=== PATIENT | female | born 1950 | race Two or more races ===

== ENCOUNTER 2017-12-14 12:50 | Emergency (ER) | payer MEDICARE, OTHER ==
[~2017-12-14] VITALS: Ht 172.7 cm; Wt 86.0 kg
[2017-12-14 13:31] LABS: BASOPHILS % 1.3 % (0.0-2.0); EOSINOPHILS % 1.3 % (0.0-5.0); HEMATOCRIT. 35.9 % (36.0-48.0); HEMOGLOBIN. 11.9 g/dL (12.0-16.0); LYMPHOCYTES % 31.7 % (20.0-50.0); MEAN CORPUSCULAR HEMOGLOBIN 30.8 pg (28.0-32.0); MEAN CORPUSCULAR VOLUME 92.7 fL (81.0-99.0); MEAN PLATELET VOLUME 8.8 fl (7.4-10.4); MONOCYTES % 7.9 % (2.0-8.0); NEUTROPHILS % 57.8 % (40.0-76.0); PLATELET 253 x1000/uL (130-400); RED BLOOD CELL COUNT 3.87 mill/uL (4.2-5.4); RED CELL DISTRIBUTION WIDTH 12.3 % (11.6-14.6)
[2017-12-14 13:40] LABS: CHLORIDE 106 mEq/L (98-107)
[2017-12-14 19:37] VITALS: BP 163/82
== END 2017-12-14 19:53 | disposition home or self-care (01) ==
LOC: ER 12:50
DX: R60.0 Localized edema (principal); I11.0 Hypertensive heart disease with heart failure; I50.9 Heart failure, unspecified; E11.9 Type 2 diabetes mellitus without complications; Z79.899 Other long term (current) drug therapy
CPT/HCPCS: 36415; 71045; 80053; 83880; 84484; 85025; 93005; 99285

== ENCOUNTER 2018-09-03 15:24 | Inpatient (IN) | payer MEDICARE, OTHER ==
[~2018-09-03] VITALS: Ht 167.6 cm; Wt 93.9 kg
[2018-09-03] MEDS ORDERED: ONDANSETRON HCL 4MG/2ML INJ IV STA (16:46)
[2018-09-03] MEDS ORDERED: SODIUM CHLORIDE 0.9% 1,000 ML IV ONE (16:46)
[2018-09-03] MEDS ORDERED: MORPHINE SULFATE 4 MG/ML CPJ (NOT FOR IM USE) IV STA (16:46)
[2018-09-03 18:38] LABS: BASOPHILS % 0.5 % (0.0-2.0); CHLORIDE 105 mEq/L (98-107); EOSINOPHILS % 2.7 % (0.0-5.0); HEMATOCRIT. 37.5 % (36.0-48.0); HEMOGLOBIN. 12.6 g/dL (12.0-16.0); LYMPHOCYTES % 22.2 % (20.0-50.0); MEAN CORPUSCULAR HEMOGLOBIN 31.7 pg (28.0-32.0); MEAN CORPUSCULAR VOLUME 94.6 fL (81.0-99.0); MEAN PLATELET VOLUME 8.7 fl (7.4-10.4); MONOCYTES % 3.5 % (2.0-8.0); NEUTROPHILS % 71.1 % (40.0-76.0); PLATELET 246 x1000/uL (130-400); RED BLOOD CELL COUNT 3.97 mill/uL (4.2-5.4); RED CELL DISTRIBUTION WIDTH 13.3 % (11.6-14.6)
[2018-09-03] MEDS ORDERED: ASPIRIN 325MG EC TABLET PO ONE (19:15)
[2018-09-03] MEDS ORDERED: ONDANSETRON HCL 4MG/2ML INJ IV ONE (19:45)
[2018-09-03 23:20] VITALS: BP 192/106
[2018-09-03 23:21] LABS: CLARITY URINE CLOUDY (CLEAR); COLOR URINE YELLOW (YELLOW); KETONES URINE NEGATIVE (NEGATIVE); LEUKOCYTE ESTERASE URINE NEGATIVE (NEGATIVE); NITRITE URINE NEGATIVE (NEGATIVE); OCCULT BLOOD URINE TRACE (NEGATIVE); PROTEIN URINE TRACE (NEGATIVE); SPECIFIC GRAVITY URINE 1.018 (1.005-1.030); UROBILINOGEN URINE 0.2 E.U./dL (0.2-1.0)
[2018-09-03 23:30] VITALS: BP 192/106
[2018-09-04] VITALS: BP 198/89
[2018-09-04] MEDS ORDERED: MORPHINE SULFATE 4 MG/ML CPJ (NOT FOR IM USE) IV PRN
[2018-09-04] MEDS ORDERED: HYDRALAZINE 20MG/ML VIAL IV PRN
[2018-09-04] MEDS: DEXT 5%/0.45% NACL 1000ML 1,000 ML IV SCH ×2 (00:55→13:22)
[2018-09-04] MEDS: METOCLOPRAMIDE HCL 10MG/2ML VIAL IV SCH ×5 (00:55→23:37)
[2018-09-04] MEDS ORDERED: METF-416 PO (02:15)
[2018-09-04] MEDS ORDERED: AMLO10TA4 PO (02:15)
[2018-09-04 04:00] VITALS: BP 101/59
[2018-09-04] MEDS ORDERED: BLOOD SUGAR DIAGNOSTIC STRIP TEST SCH (06:00)
[2018-09-04] MEDS: INSULIN LISPRO 100 UNITS/ML SUBCUT SCH ×4 (06:29→20:44)
[2018-09-04] MEDS: BLOOD SUGAR DIAGNOSTIC STRIP TEST SCH ×4 (06:29→20:36)
[2018-09-04 06:48] LABS: CHLORIDE 105 mEq/L (98-107)
[2018-09-04 06:53] LABS: BASOPHILS % 0.4 % (0.0-2.0); EOSINOPHILS % 1.8 % (0.0-5.0); HEMATOCRIT. 32.8 % (36.0-48.0); HEMOGLOBIN. 11.2 g/dL (12.0-16.0); LYMPHOCYTES % 27.8 % (20.0-50.0); MEAN CORPUSCULAR HEMOGLOBIN 32.5 pg (28.0-32.0); MEAN CORPUSCULAR VOLUME 94.8 fL (81.0-99.0); MEAN PLATELET VOLUME 8.6 fl (7.4-10.4); MONOCYTES % 4.8 % (2.0-8.0); NEUTROPHILS % 65.2 % (40.0-76.0); PLATELET 227 x1000/uL (130-400); RED BLOOD CELL COUNT 3.46 mill/uL (4.2-5.4); RED CELL DISTRIBUTION WIDTH 13.3 % (11.6-14.6)
[2018-09-04 08:00] VITALS: BP 110/47
[2018-09-04] MEDS ORDERED: LOPE2CAP MT (08:44)
[2018-09-04] MEDS: PANTOPRAZOLE SODIUM 40 MG/VIAL IV SCH (09:08)
[2018-09-04 12:00] VITALS: BP_SYST 124; BP_SYST 126; BP_SYST 128; BP_DIAS 72; BP_DIAS 74; BP_DIAS 75; BP_DIAS 76
[2018-09-04] MEDS ORDERED: INSU100I28 SQ (12:13)
[2018-09-04] MEDS ORDERED: DEXTROSE 50% WATER 50ML SYRINGE IV PRN ×2 (13:00)
[2018-09-04] MEDS ORDERED: LORAZEPAM 0.5MG TABLET PO PRN (13:00)
[2018-09-04] MEDS ORDERED: ACETAMINOPHEN 325MG TABLET PO PRN (13:00)
[2018-09-04] MEDS ORDERED: DIPHENHYDRAMINE 50MG/ML VIAL IV PRN (13:00)
[2018-09-04] MEDS ORDERED: ONDANSETRON HCL 4MG/2ML INJ IV PRN ×2 (13:00)
[2018-09-04] MEDS ORDERED: CLONIDINE 0.1MG TABLET PO PRN (13:00)
[2018-09-04] MEDS: AMLODIPINE 10MG TABLET PO SCH (13:22)
[2018-09-04 16:00] VITALS: BP 126/76
[2018-09-04 20:00] VITALS: BP 118/55
[2018-09-05] VITALS: BP 124/70
[2018-09-05] MEDS: DEXT 5%/0.45% NACL 1000ML 1,000 ML IV SCH (03:03)
[2018-09-05 04:00] VITALS: BP 150/61
[2018-09-05] MEDS: BLOOD SUGAR DIAGNOSTIC STRIP TEST SCH ×2 (05:37→12:10)
[2018-09-05] MEDS: INSULIN LISPRO 100 UNITS/ML SUBCUT SCH ×2 (05:56→12:40)
[2018-09-05] MEDS: METOCLOPRAMIDE HCL 10MG/2ML VIAL IV SCH ×2 (06:03→14:37)
[2018-09-05] MEDS: PANTOPRAZOLE SODIUM 40 MG/VIAL IV SCH (08:50)
[2018-09-05] MEDS: AMLODIPINE 10MG TABLET PO SCH (08:54)
[2018-09-05 09:25] VITALS: BP 134/65
[2018-09-05 12:00] VITALS: BP 129/85
[2018-09-05 14:45] VITALS: BP 162/85
== END 2018-09-05 15:30 | disposition home or self-care (01) | DRG 74 ==
LOC: ER 15:24 → 8WST 20:39 → ENRESERV 21:31
PROVIDERS: ADMIT Internal Medicine; ATTEND Internal Medicine
DX: E11.43 Type 2 diabetes mellitus with diabetic autonomic (poly)neuropathy (principal); I10 Essential (primary) hypertension; K31.84 Gastroparesis; Z90.49 Acquired absence of other specified parts of digestive tract; Z83.3 Family history of diabetes mellitus
CPT/HCPCS: 36415; 71045; 74176; 80048; 80076; 82962; 84484; 93005; 96374; 99285; C9113; J0360; J1815; J2270; J2405; J2765; J7030

== ENCOUNTER 2019-09-12 00:46 | Inpatient (IN) | payer BC, MEDICARE ==
[~2019-09-12] VITALS: Ht 167.6 cm; Wt 95.3 kg
[~2019-09-12 00:46] MED LIST: AMLO10TA4 PO; INSU100I28 SQ; LOPE2CAP MT; METF-416 PO
[2019-09-12] MEDS ORDERED: ONDANSETRON HCL 4MG/2ML INJ IV STA (01:28)
[2019-09-12] MEDS ORDERED: SODIUM CHLORIDE 0.9% 1,000 ML IV ONE (01:28)
[2019-09-12 01:41] LABS: CHLORIDE 95 mEq/L (98-107)
[2019-09-12 01:43] LABS: HEMATOCRIT. 38.1 % (36.0-48.0); HEMOGLOBIN. 12.8 g/dL (12.0-16.0); MEAN CORPUSCULAR HEMOGLOBIN 31.7 pg (28.0-32.0); MEAN CORPUSCULAR VOLUME 94.4 fL (81.0-99.0); MEAN PLATELET VOLUME 9.9 fl (7.4-10.4); PLATELET 196 x1000/uL (130-400); RED BLOOD CELL COUNT 4.03 mill/uL (4.2-5.4); RED CELL DISTRIBUTION WIDTH 13.3 % (11.6-14.6)
[2019-09-12 02:14] LABS: PLATELET ESTIMATE NORMAL
[2019-09-12 05:38] LABS: CLARITY URINE TURBID (CLEAR); COLOR URINE YELLOW (YELLOW); KETONES URINE NEGATIVE (NEGATIVE); LEUKOCYTE ESTERASE URINE 2+ (NEGATIVE); NITRITE URINE POSITIVE (NEGATIVE); OCCULT BLOOD URINE 2+ (NEGATIVE); PROTEIN URINE 2+ (NEGATIVE); SPECIFIC GRAVITY URINE 1.019 (1.005-1.030)
[2019-09-12] MEDS ORDERED: INSULIN LISPRO 100 UNITS/ML SUBCUT SCH ×2 (05:45→08:20)
[2019-09-12] MEDS ORDERED: ONDANSETRON HCL 4MG/2ML INJ IV PRN (08:00)
[2019-09-12] MEDS ORDERED: DEXTROSE 50% WATER 50ML SYRINGE IV PRN (08:00)
[2019-09-12] MEDS ORDERED: ACETAMINOPHEN 325MG TABLET PO PRN (08:00)
[2019-09-12] MEDS ORDERED: SODIUM CHLORIDE 0.9% 1,000 ML IV SCH (08:00)
[2019-09-12] MEDS ORDERED: CLONIDINE 0.1MG TABLET PO SCH (08:30)
[2019-09-12 08:50] VITALS: BP 155/71
[2019-09-12] MEDS ORDERED: AMLODIPINE 10MG TABLET PO SCH (09:00)
[2019-09-12] MEDS ORDERED: BLOOD SUGAR DIAGNOSTIC STRIP TEST SCH (09:00)
[2019-09-12] MEDS ORDERED: INSULIN GLARGINE UD 100 UNITS/ML SYR SUBCUT SCH ×2 (10:00)
[2019-09-12] MEDS: SODIUM CHLORIDE 0.9% 1,000 ML IV SCH (10:26)
[2019-09-12] MEDS: ACETAMINOPHEN 325MG TABLET PO PRN ×2 (11:05→17:08)
[2019-09-12 12:00] VITALS: BP 144/60
[2019-09-12] MEDS: BLOOD SUGAR DIAGNOSTIC STRIP TEST SCH ×3 (12:28→21:00)
[2019-09-12] MEDS: INSULIN LISPRO 100 UNITS/ML SUBCUT SCH ×3 (12:43→21:07)
[2019-09-12] MEDS ORDERED: ENOXAPARIN 40MG/0.4ML SYR SUBCUT SCH (18:00)
[2019-09-12] MEDS ORDERED: CEFTRIAXONE 1,000 MG in DEXTROSE 5% WATER 50 ML IV SCH (18:30)
[2019-09-12 20:00] VITALS: BP 122/55
[2019-09-13] VITALS: BP 148/69
[2019-09-13] MEDS: ACETAMINOPHEN 325MG TABLET PO PRN ×3 (02:20→17:02)
[2019-09-13] MEDS: SODIUM CHLORIDE 0.9% 1,000 ML IV SCH ×2 (02:28→21:16)
[2019-09-13] MEDS: INSULIN GLARGINE UD 100 UNITS/ML SYR SUBCUT SCH ×2 (02:30→10:20)
[2019-09-13 04:00] VITALS: BP 120/62
[2019-09-13] MEDS: BLOOD SUGAR DIAGNOSTIC STRIP TEST SCH ×4 (06:30→20:22)
[2019-09-13 06:46] LABS: HEMOGLOBIN. 11.2 g/dL (12.0-16.0); MEAN CORPUSCULAR HEMOGLOBIN 30.9 pg (28.0-32.0); PLATELET 145 x1000/uL (130-400); RED BLOOD CELL COUNT 3.61 mill/uL (4.2-5.4); RED CELL DISTRIBUTION WIDTH 13.3 % (11.6-14.6)
[2019-09-13] MEDS ORDERED: PIPERACILLIN/TAZOBACTAM 3.375 G in DEXT 5% WATER 100 ML IV SCH (07:15)
[2019-09-13 08:00] VITALS: BP 163/99
[2019-09-13] MEDS: AMLODIPINE 10MG TABLET PO SCH (08:39)
[2019-09-13] MEDS: INSULIN LISPRO 100 UNITS/ML SUBCUT SCH ×4 (08:39→21:15)
[2019-09-13] MEDS ORDERED: VANCOMYCIN 2,000 MG in DEXT 5% WATER 500 ML IV SCH (09:00)
[2019-09-13] MEDS ORDERED: POTASSIUM CHLORIDE 20MEQ TABLET SR PO SCH (09:00)
[2019-09-13 12:00] VITALS: BP 113/58
[2019-09-13] MEDS: PIPERACILLIN/TAZOBACTAM 2.25 G in DEXTROSE 5% WATER 50 ML IV SCH ×2 (12:44→21:13)
[2019-09-13 16:00] VITALS: BP 171/71
[2019-09-13] MEDS ORDERED: CLONIDINE 0.1MG TABLET PO PRN (17:00)
[2019-09-13] MEDS: ENOXAPARIN 30MG/0.3ML SYR SUBCUT SCH (17:03)
[2019-09-13 20:00] VITALS: BP 144/82
[2019-09-13 20:05] LABS: PLATELET ESTIMATE NORMAL
[2019-09-13] MEDS: HYDRALAZINE HCL 50MG TABLET PO SCH (21:00)
[2019-09-14] VITALS: BP 123/59
[2019-09-14] MEDS: INSULIN GLARGINE UD 100 UNITS/ML SYR SUBCUT SCH ×3 (00:24→21:35)
[2019-09-14] MEDS: PIPERACILLIN/TAZOBACTAM 2.25 G in DEXTROSE 5% WATER 50 ML IV SCH ×2 (00:26→05:42)
[2019-09-14 04:00] VITALS: BP 149/62
[2019-09-14] MEDS: ACETAMINOPHEN 325MG TABLET PO PRN ×2 (04:16→12:14)
[2019-09-14 06:49] LABS: HEMATOCRIT. 30.9 % (36.0-48.0); HEMOGLOBIN. 10.4 g/dL (12.0-16.0); MEAN CORPUSCULAR HEMOGLOBIN 31.4 pg (28.0-32.0); MEAN CORPUSCULAR VOLUME 93.6 fL (81.0-99.0); MEAN PLATELET VOLUME 10.2 fl (7.4-10.4); PLATELET 151 x1000/uL (130-400); RED CELL DISTRIBUTION WIDTH 13.4 % (11.6-14.6)
[2019-09-14] MEDS: BLOOD SUGAR DIAGNOSTIC STRIP TEST SCH ×4 (07:43→20:40)
[2019-09-14 08:00] VITALS: BP 123/62
[2019-09-14] MEDS: INSULIN LISPRO 100 UNITS/ML SUBCUT SCH ×4 (08:27→20:49)
[2019-09-14] MEDS: AMLODIPINE 10MG TABLET PO SCH (08:30)
[2019-09-14] MEDS: HYDRALAZINE HCL 50MG TABLET PO SCH ×2 (08:30→20:37)
[2019-09-14 10:56] LABS: CREATINE KINASE 485 IU/L (26-192)
[2019-09-14 12:00] VITALS: BP 137/56
[2019-09-14 12:53] LABS: PLATELET ESTIMATE NORMAL
[2019-09-14] MEDS: CEFAZOLIN 2,000 MG in DEXT 5% WATER 100 ML IV SCH ×2 (12:53→21:05)
[2019-09-14 16:00] VITALS: BP 100/70
[2019-09-14] MEDS: ENOXAPARIN 30MG/0.3ML SYR SUBCUT SCH (16:46)
[2019-09-14 20:00] VITALS: BP 114/72
[2019-09-15] VITALS: BP 141/69
[2019-09-15 04:00] VITALS: BP 157/80
[2019-09-15] MEDS: SODIUM CHLORIDE 0.9% 1,000 ML IV SCH (04:52)
[2019-09-15] MEDS: CEFAZOLIN 2,000 MG in DEXT 5% WATER 100 ML IV SCH ×2 (05:39→13:01)
[2019-09-15 07:21] LABS: PHOSPHORUS 1.2 mg/dL (2.5-4.9)
[2019-09-15] MEDS: BLOOD SUGAR DIAGNOSTIC STRIP TEST SCH ×2 (07:31→13:14)
[2019-09-15 08:00] VITALS: BP 155/65
[2019-09-15] MEDS: HYDRALAZINE HCL 50MG TABLET PO SCH (08:21)
[2019-09-15] MEDS: AMLODIPINE 10MG TABLET PO SCH (08:21)
[2019-09-15] MEDS: ACETAMINOPHEN 325MG TABLET PO PRN (08:21)
[2019-09-15] MEDS ORDERED: LIDOCAINE HCL 1% 20ML VIAL (Pyxis) INJ ONE (08:32)
[2019-09-15] MEDS ORDERED: SODIUM BICARBONATE 4% (2.4MEQ) 5ML VIAL IV ONE (08:32)
[2019-09-15] MEDS: INSULIN LISPRO 100 UNITS/ML SUBCUT SCH ×2 (08:40→13:14)
[2019-09-15] MEDS: INSULIN GLARGINE UD 100 UNITS/ML SYR SUBCUT SCH (10:40)
[2019-09-15 12:00] VITALS: BP 140/73
[2019-09-15 12:53] LABS: EOSINOPHILS % 0.2 % (0.0-5.0); HEMATOCRIT. 31.5 % (36.0-48.0); HEMOGLOBIN. 10.5 g/dL (12.0-16.0); LYMPHOCYTES % 13.7 % (20.0-50.0); MEAN CORPUSCULAR HEMOGLOBIN 31.3 pg (28.0-32.0); MEAN CORPUSCULAR VOLUME 93.6 fL (81.0-99.0); MEAN PLATELET VOLUME 10.6 fl (7.4-10.4); MONOCYTES % 11.6 % (2.0-8.0); NEUTROPHILS % 73.5 % (40.0-76.0); PLATELET 180 x1000/uL (130-400); RED BLOOD CELL COUNT 3.36 mill/uL (4.2-5.4); RED CELL DISTRIBUTION WIDTH 13.6 % (11.6-14.6)
[2019-09-15] MEDS ORDERED: ENOXAPARIN 40MG/0.4ML SYR SUBCUT SCH (17:00)
== END 2019-09-15 13:57 | disposition left against medical advice (07) | DRG 871 ==
LOC: ER 00:46 → 6EST 04:21 → ENRESERV 07:27 → ER 08:51
PROVIDERS: ADMIT Internal Medicine; ATTEND Internal Medicine
PROC: 02HV33Z Insertion of Infusion Device into Superior Vena Cava, Percutaneous Approach (ICD-10-PCS; principal; 2019-09-15)
PROC: B548ZZA Ultrasonography of Superior Vena Cava, Guidance (ICD-10-PCS; 2019-09-15)
PROC: B5181ZA Fluoroscopy of Superior Vena Cava using Low Osmolar Contrast, Guidance (ICD-10-PCS; 2019-09-15)
DX: A41.51 Sepsis due to Escherichia coli [E. coli] (principal); N17.0 Acute kidney failure with tubular necrosis; E44.0 Moderate protein-calorie malnutrition; E87.1 Hypo-osmolality and hyponatremia; E87.2 Acidosis; N12 Tubulo-interstitial nephritis, not specified as acute or chronic; E11.22 Type 2 diabetes mellitus with diabetic chronic kidney disease; E11.43 Type 2 diabetes mellitus with diabetic autonomic (poly)neuropathy; E66.9 Obesity, unspecified; E87.8 Other disorders of electrolyte and fluid balance, not elsewhere classified; I12.9 Hypertensive chronic kidney disease with stage 1 through stage 4 chronic kidney disease, or unspecified chronic kidney disease; K31.84 Gastroparesis; N18.2 Chronic kidney disease, stage 2 (mild); D64.9 Anemia, unspecified; Z60.2 Problems related to living alone; Z53.29 Procedure and treatment not carried out because of patient's decision for other reasons; R65.20 Severe sepsis without septic shock; Z83.3 Family history of diabetes mellitus; Z82.49 Family history of ischemic heart disease and other diseases of the circulatory system; Z90.49 Acquired absence of other specified parts of digestive tract; Z68.33 Body mass index [BMI] 33.0-33.9, adult; Z79.899 Other long term (current) drug therapy; Z71.89 Other specified counseling; Z79.84 Long term (current) use of oral hypoglycemic drugs
CPT/HCPCS: 36415; 36573; 71045; 74176; 76937; 80048; 80053; 80202; 81003; 82550; 82962; 83605; 83735; 84100; 85025; 87077; 87186; 97162; 99285; C1725; J0690; J0696; J1650; J1815; J2405; J2543; J3370; J3490; J7030; J7060